=== PATIENT | male | born 1960 | race Caucasian/White ===

== ENCOUNTER 2022-06-15 20:11 | Emergency (ER) | payer OTHER ==
[2022-06-15 20:37] LABS: BASOPHIL 0.6 % (0-2); EOSINOPHIL 0.3 % (0-5); HCT 45.2 % (42.0-52.0); HGB 15.9 g/dl (13.2-18.0); MCH 29.8 pg (25.0-31.0); MCHC 35.2 g/dL (32.0-36.0); MCV 84.8 fL (78.0-100.0); MONOCYTE 6.3 % (0-12); MPV 9.5 fL (6.0-9.5); NEUTROPHIL 76.3 % (41-80); NRBC 0; PLT 164 K/uL (150-400); RBC 5.33 M/uL (4.70-6.00); RDW 13.7 % (11.5-14.0); WBC 8.9 K/uL (4.0-10.5)
[2022-06-15 21:08] LABS: ALBUMIN 4.8 g/dL (3.4-5.0); BILIRUBIN - TOTAL 1.2 mg/dL (0.2-1.0); BUN/CREAT RATIO (CALC) 20.2 RATIO; CREATININE 1.09 mg/dL (0.67-1.17); GLOBULIN (CALCULATION) 2.9 g/dL; POTASSIUM 3.8 mmol/L (3.5-5.1); TOTAL PROTEIN 7.7 g/dL (6.4-8.2)
[2022-06-15 22:54] LABS: CORONAVIRUS 2019 SARS-COV-2 NEGATIVE (NEGATIVE); INFLUENZA A NAA NEGATIVE (NEGATIVE)
[2022-06-15 23:38] LABS: PROTHROMBIN TIME 12.9 SECONDS (11.9-13.9); PTT 29.2 SECONDS (24.9-34.6)
== END 2022-06-16 01:45 | disposition other institution (70) ==
LOC: FER 20:11
PROVIDERS: Emergency Medicine
DX: I21.4 Non-ST elevation (NSTEMI) myocardial infarction (principal); I10 Essential (primary) hypertension; I25.10 Atherosclerotic heart disease of native coronary artery without angina pectoris; Z20.822 Contact with and (suspected) exposure to COVID-19
CPT/HCPCS: 36415; 71045; 80053; 83880; 84484; 85025; 85610; 85730; 93005; J1644; U0002